=== PATIENT | male | born 1950 | race Caucasian/White ===

== ENCOUNTER 2017-12-13 13:03 | Emergency (ER) | payer BC ==
--- NOTE | 2017-12-13 13:40 | EDM.PDOC ---
ED HPI GENERAL MEDICAL PROBLEM - General Chief Complaint: Lower Extremity Injury/Pain Stated Complaint: LT KNEE PAIN Time Seen by Provider: 12/13/17 13:25 Source of Information: Reports: Patient, Family History Limitations: Reports: No Limitations - History of Present Illness INITIAL COMMENTS - FREE TEXT/NARRATIVE: c/o R knee pain h/o DJD L knee, [id number], had TKR 2015, still had pain, had revision at [facility] by Dr Monroe ("cleaned out," spacer placed) pt going to rehab, taking Percocet 7.5 w tab q4h regularly cannot more than 4.5h without pain can walk 50 yards, walks in house, had had inc'd pain at times, today had pain and went to PT and had ice put on it, did not due exercises, still had pain and decided to come to ED, pt worried re a blood clot here with his has been doing stretching at home f/u with surgeon in 1w, has seen PCP Dr Vides in f/u sees Manish from PT denies CV hx altho pointed out he had afib once, had converted to SR as they were wheeling him to the EPS lab 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: Reports: Other Medication(s) L knee Pain Score (Numeric/FACES): 4 - Related Data Allergies Allergy/AdvReac Type Severity Reaction Status Date / Time Sulfa (Sulfonamide Allergy Hives Verified 12/13/17 13:13 Antibiotics) Home Meds: Home Meds Aspirin [Halfprin] 81 mg PO DAILY 12/10/15 [History] Potassium Chloride 20 meq PO DAILY 12/10/15 [History] amLODIPine Besylate/Benazepril [Lotrel 10-40 MG] 1 tab PO DAILY 12/10/15 [ History] Hydrocodone/Acetaminophen [Hydrocodon-Acetaminoph 7.5-325] 2 tab Q4H PRN [History] Minocycline HCl 100 mg PO BID 12/13/17 [History] oxyCODONE HCl/Acetaminophen [Percocet 7.5-325 mg Tablet] 1 each PO Q4H PRN #12 tablet 12/13/17 [Rx] Past Medical History HEENT History: Reports: Impaired Vision Cardiovascular History: Reports: Hypertension Respiratory History: Reports: Asthma Other Respiratory History: STATES ASTHMA A CHILD Gastrointestinal History: Reports: Colon Polyp, Irritable Bowel Syndrome Genitourinary History: Reports: None Musculoskeletal History: Reports: Arthritis, Osteoarthritis Neurological History: Reports: None Psychiatric History: Reports: None Endocrine/Metabolic History: Reports: None Hematologic History: Reports: None Immunologic History: Reports: None Oncologic (Cancer) History: Reports: None Dermatologic History: Reports: Other (See Below) Other Dermatologic History: TREATED FOR PERIODIC RASH BY STAFF DEVELOPMENT EDUCATOR YEARS AGO. STATES RASH ON GROIN ET ON UNDER ARMS. CANNOT REMEMBER MED USED FOR THIS. - Infectious Disease History Infectious Disease History: Reports: Chicken Pox, Measles - Past Surgical History Head Surgeries/Procedures: Reports: None Musculoskeletal Surgical History: Reports: Arthroscopic Knee, Knee Replacement Social & Family History - Tobacco Use Smoking Status *Q: Former Smoker Years of Tobacco use: 2 Review of Systems - Review of Systems Review Of Systems: See Below Constitutional: Reports: No Symptoms Eyes: Reports: No Symptoms Ears: Reports: No Symptoms Nose: Reports: No Symptoms Mouth/Throat: Reports: No Symptoms Respiratory: Reports: No Symptoms Cardiovascular: Reports: No Symptoms GI/Abdominal: Reports: No Symptoms Genitourinary: Reports: No Symptoms Musculoskeletal: Reports: Other (knee pain, chronic swelling, pain is anterior and posterior) Skin: Reports: No Symptoms Neurological: Reports: No Symptoms Psychiatric: Reports: No Symptoms ED EXAM, GENERAL - Physical Exam Exam: See Below Exam Limited By: No Limitations General Appearance: Alert, WD/WN, No Apparent Distress Respiratory/Chest: No Respiratory Distress Extremities: Other (L knee with healing midline scar without d/c, slight red and warm c/w swelling and healing, no clinical evidence of cellulitis, moderate swelling of prepatellar bursa b/l, possible intrarticular effusion altho difficult to tell if patella is ballottable, no localized PT, no localized bony tenderness) Psychiatric: Normal Affect, Normal Mood Skin Exam: Warm, Dry, Intact, Normal Color, No Rash Lymphatic: No Adenopathy Course - Vital Signs Last Recorded V/S: Last Vital Signs Temp 36.6 C 12/13/17 13:03 Pulse 77 12/13/17 15:42 Resp 18 12/13/17 15:42 BP 129/75 12/13/17 15:42 Pulse Ox 100 12/13/17 15:42 - Orders/Labs/Meds Orders: Active Orders 24 hr Category Date Time Status Knee 3V Lt [CR] Stat Exams 12/13/17 13:42 Taken VL Duplex Lwr Ext Veins Ltd Lt [US] Stat Exams 12/13/17 13:42 Taken Labs: Laboratory Tests 12/13/17 12/13/17 12/13/17 Range/Units 13:53 13:53 13:53 WBC 6.7 (4.5-12.0) X10-3/uL RBC 3.24 L (4.30-5.75) x10(6)uL Hgb 11.0 L (11.5-15.5) g/dL Hct 32.9 (30.0-51.3) % MCV 101.2 H (80-96) fL MCH 34.0 H (27.7-33.6) pg MCHC 33.6 (32.2-35.4) g/dL RDW 12.9 (11.5-15.5) % Plt Count 264 (125-369) X10(3)uL MPV 7.7 (7.4-10.4) fL Neut % (Auto) 79.4 (46-82) % Lymph % (Auto) 7.9 L (13-37) % Putnam % (Auto) 11.5 (4-12) % Eos % (Auto) 1 (1.0-5.0) % Baso % (Auto) 1 (0-2) % Neut # (Auto) 5.4 (1.6-8.3) # Lymph # (Auto) 0.5 L (0.6-5.0) # Putnam # (Auto) 0.8 (0.0-1.3) # Eos # (Auto) 0.0 (0.0-0.8) # Baso # (Auto) 0.0 (0.0-0.2) # ESR 45 H (0-15) mm/hr Sodium 137 (135-145) mmol/L Potassium 3.0 L (3.5-5.3) mmol/L Chloride 98 L (100-110) mmol/L Carbon Dioxide 30 (21-32) mmol/L BUN 6 L (7-18) mg/dL Creatinine 0.6 L (0.70-1.30) mg/dL Est Cr Clr Drug Dosing 110.76 mL/min Estimated GFR (MDRD) > 60 (>60) BUN/Creatinine Ratio 10.0 (9-20) Glucose 140 H (80-116) mg/dL Calcium 8.5 L (8.6-10.2) mg/dL Total Bilirubin 0.9 (0.1-1.3) mg/dL AST 44 H (5-25) IU/L ALT 13 (12-36) U/L Alkaline Phosphatase 92 (56-112) IU/L C-Reactive Protein 1.7 H (0.5-0.9) mg/dL Total Protein 6.2 (6.0-8.0) g/dL Albumin 2.8 L (3.2-4.6) g/dL Globulin 3.4 g/dL Albumin/Globulin Ratio 0.8 Meds: Medications Discontinued Medications Generic Name Dose Route Start Last Admin Trade Name Freq PRN Reason Stop Dose Admin Ketorolac Tromethamine 60 mg 12/13/17 13:40 12/13/17 13:55 Toradol IM 12/13/17 13:41 60 mg ONETIME ONE Administration - Re-Assessments/Exams Free Text/Narrative Re-Assessment/Exam: 12/13/17 15:48 mild inc'd CRP and ESR c/w postop, XR with inc'd joint space c/w spacer, no evidence loosening, WBC neg K 3.0, had been on HCTZ until recently, still on KCl 20 meq daily, will increase for now next PT in 4d, d/w Manish at PT prepatellar bursa c/w overuse Departure - Departure Time of Disposition: 15:50 Disposition: Home, Self-Care 01 Condition: Good Clinical Impression: Prepatellar bursitis of left knee - Discharge Information Prescriptions: oxyCODONE HCl/Acetaminophen [Percocet 7.5-325 mg Tablet] 1 each PO Q4H PRN #12 tablet PRN Reason: Pain Instructions: Prepatellar Bursitis Referrals: Manuel Meza MD [Primary Care Provider] - Forms: ED Department Discharge Additional Instructions: For pain and inflammation and swelling, take ibuprofen 200 mg 3 tabs 4 times a day for 1 week. For pain, may substitute one tab of oxycodone with acetaminophen 7.5/325 mg for one (or two) tabs of hydrocodone with acetaminophen 7.5/325 mg. Continue ice 10 minutes every 2 hours as needed. Continue stretching and PT, however decrease duration by 30% in order to allowed inflamed tissues the opportunity to heal. See Dr Vides or Dr Clarke in 4-5 days. Increase potassium 20 meq 2 tabs daily for 1 week, then discuss the ongoing dose with Dr Vides. Call your Physician or Return to Emergency Department if: * Your condition worsens in any way. * You develop fever greater than 100.4. * You have vomitting that does not stop with medications. * You have pain that is not controlled with medications. - My Orders Last 24 Hours: My Active Orders 12/13/17 13:42 Knee 3V Lt [CR] Stat VL Duplex Lwr Ext Veins Ltd Lt [US] Stat - Assessment/Plan Last 24 Hours: My Active Orders 12/13/17 13:42 Knee 3V Lt [CR] Stat VL Duplex Lwr Ext Veins Ltd Lt [US] Stat
[2017-12-13] MEDS: Ketorolac 60 MG/2 ML SDV IM ONE (13:55)
[2017-12-13 15:43] VITALS: BP 129/75
--- NOTE | 2017-12-14 09:24 | US ---
INDICATION: Increased pain in left knee, 3 weeks post-op. DUPLEX ULTRASOUND, LEFT LOWER EXTREMITY VEINS: Utilizing 2-D real time, duplex Doppler spectral analysis, and color flow imaging, examination of the left lower extremity veins revealed no evidence of deep venous thrombosis or obstruction. Compression views showed no abnormal lack of compression to suggest thrombosis. No evidence of incompetence of the valves was identified. A mass apparently cranial and anterior to the patella is suggested. No blood flow images were obtained, however, the technologist did not see any color flow on real time imaging. Findings could be on the basis of a hematoma. It measured approximately 34 mm anteroposterior and 103 mm craniocaudad. The possibility that this represents a hematoma is likely. IMPRESSION: 1) Duplex ultrasound, left lower extremity veins, shows no evidence of deep venous thrombosis or incompetence. 2) 10 x 3.4-cm mass density at the anterior left distal thigh. The possibility that this represents a hematoma is likely. MTDD
--- NOTE | 2017-12-14 09:34 | CR ---
INDICATION: Revision total knee arthroplasty, 12/20/2017. Increased pain. LEFT KNEE: Frontal, lateral, and patellar sunrise views of the left knee were obtained 12/13/2017 and compared with 11/22/2017, revealing position and alignment of the TKA to remain unchanged. Resolution of post-surgical changes is for the most part seen. There is increased prominence, however, at the area of the suprapatellar bursa, raising question of a mass in that area, possibly a large knee joint effusion. Deviation of the patella away from the femoral component of the TKA further suggests a significant sized knee joint effusion. Otherwise, no complicating process was suggested. MTDD
== END 2017-12-13 16:00 | disposition home or self-care (01) ==
LOC: FB.ED 13:03
DX: M70.42 Prepatellar bursitis, left knee (principal); I10 Essential (primary) hypertension; J45.909 Unspecified asthma, uncomplicated; Z88.2 Allergy status to sulfonamides; Z79.899 Other long term (current) drug therapy; Z87.891 Personal history of nicotine dependence
CPT/HCPCS: 36415; 73562-LT; 80053; 85025; 85651; 86140; 93971-LT; 96372; 99284; J1885

== ENCOUNTER 2021-05-28 05:13 | Emergency (ER) | payer BC ==
[2021-05-28] MEDS ORDERED: Lidocaine 1% 20 ML MDV INFILT ONE (05:14)
--- NOTE | 2021-05-28 05:22 | EDM.PDOC ---
ED HPI GENERAL MEDICAL PROBLEM - General Stated Complaint: head lac Time Seen by Provider: 05/28/21 05:21 Source of Information: Reports: Patient History Limitations: Reports: No Limitations - History of Present Illness INITIAL COMMENTS - FREE TEXT/NARRATIVE: 70-year-old male who had basal cell carcinoma removed from his left temporal area on a 2020. On 05/19/2021 he had the sutures removed and then 2 days ago he had an opening of the wound and the internal stitches apparently came out. He was seen in the walk-in clinic and they placed Steri-Strips and then at 3 to 4 AM today he was awakened with bleeding from this area. He states that he has placed direct pressure on it somewhat heated to stop and it has continued to bleed all presenting here he denies any pain. He rates his pain as a 0/10. He has had no nausea or vomiting. There has been no weakness or dizziness. There has been no trauma to the area. He presents to the emergency department via private vehicle by himself. There are no other associated signs or symptoms. There are no other modifying factors. Onset: Today (3 to 4 AM today.) Duration: Constant Location: Reports: Head (Left temporal area) Quality: Reports: Other (Not applicable) Context: Reports: Other Associated Symptoms: Reports: No Other Symptoms Treatments KAIAWHINA: Reports: Dressing(s), Home Treatments - Related Data Allergies Allergy/AdvReac Type Severity Reaction Status Date / Time Sulfa (Sulfonamide Allergy Hives Verified 12/13/17 13:13 Antibiotics) Home Meds: Home Meds Aspirin [Halfprin] 81 mg PO DAILY 12/10/15 [History] Potassium Chloride 20 meq PO DAILY 12/10/15 [History] amLODIPine Besylate/Benazepril [Lotrel 10-40 MG] 1 tab PO DAILY 12/10/15 [History] Hydrocodone/Acetaminophen [HYDROcodone-Acetaminophen 7.5-325 MG] 2 tab Q4H PRN 12/13/17 [History] Minocycline HCl 100 mg PO BID 12/13/17 [History] oxyCODONE HCl/Acetaminophen [Percocet 7.5-325 mg Tablet] 1 each PO Q4H PRN #12 tablet 12/13/17 [Rx] Past Medical History HEENT History: Reports: Impaired Vision Cardiovascular History: Reports: Hypertension Respiratory History: Reports: Asthma Other Respiratory History: STATES ASTHMA A CHILD Gastrointestinal History: Reports: Colon Polyp, Irritable Bowel Syndrome Musculoskeletal History: Reports: Arthritis, Osteoarthritis Dermatologic History: Reports: Other (See Below) Other Dermatologic History: TREATED FOR PERIODIC RASH BY 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 STATES RASH ON GROIN ET ON UNDER ARMS. CANNOT REMEMBER MED USED FOR THIS. - Infectious Disease History Infectious Disease History: Reports: Chicken Pox, Measles - Past Surgical History Musculoskeletal Surgical History: Reports: Arthroscopic Knee, Knee Replacement Social & Family History - Tobacco Use Tobacco Use Status *Q: Unknown Ever Used Tobacco (Nonsmoker) - Caffeine Use Caffeine Use: Reports: Coffee - Alcohol Use Alcohol Use History: No ED ROS GENERAL - Review of Systems Review Of Systems: See Below Constitutional: Denies: Fever, Chills HEENT: Denies: Eye Pain, Throat Pain Respiratory: Denies: Shortness of Breath, Cough Cardiovascular: Denies: Chest Pain, Palpitations GI/Abdominal: Denies: Abdominal Pain, Nausea, Vomiting : Denies: Dysuria, Hematuria Musculoskeletal: Denies: Neck Pain, Back Pain Skin: Reports: Wound. Denies: Diaphoresis, Rash Neurological: Denies: Headache Psychiatric: Denies: Anxiety Hematologic/Lymphatic: Denies: Easy Bleeding, Easy Bruising ED EXAM, GENERAL - Physical Exam Exam: See Below Exam Limited By: No Limitations General Appearance: Alert, WD/WN, No Apparent Distress Eye Exam: Bilateral Eye: EOMI, Normal Inspection Ears: Normal External Exam, Hearing Grossly Normal Ear Exam: Bilateral Ear: Auricle Normal Nose: Normal Inspection, Normal Mucosa, No Blood Throat/Mouth: Normal Inspection, Normal Oropharynx, Normal Voice, No Airway Compromise Head: Atraumatic, Other (There is an open wound on his left temporal area with clot in the base and appearance of previous bleeding. There is no erythema.) Neck: Normal Inspection, Supple, Non-Tender, Full Range of Motion Respiratory/Chest: No Respiratory Distress, Lungs Clear, Normal Breath Sounds, No Accessory Muscle Use, Chest Non-Tender Cardiovascular: Normal Peripheral Pulses, Regular Rate, Rhythm, No Murmur Peripheral Pulses: 2+: Radial (L), Radial (R) GI/Abdominal: Normal Bowel Sounds, Soft, Non-Tender Back Exam: Normal Inspection Extremities: Normal Inspection, Normal Range of Motion, Non-Tender, No Pedal Edema, Normal Capillary Refill Neurological: Alert, Oriented, CN II-XII Intact, Normal Cognition, No Motor/Sensory Deficits Psychiatric: Normal Affect Skin Exam: Warm, Dry, Normal Color, No Rash, Wound/Incision (In the left temporal area as mentioned above.) ED GENERAL MEDICAL PROCEDURES - Additional/Other Procedure(s) Other (Free Text) Procedure(s): The patient had bleeding from his previous surgical site for removal of basal cell carcinoma in the left temporal area. There was clot in the base and we were able to clear all of this out and there were a couple bleeding spots that seem to be small bleeders at the edges of the wound. After informed verbal consent was obtained from the patient, I did proceed to use silver nitrate cautery to attempt to get control of this and add further bleeding that was difficult to control with a sore nitrate and I did attempt suturing with some 4-0 Vicryl seemed to be untenable as the wound edges were to Nico part to provide good closure. I had anesthetized the area with 1% lidocaine 3 ml and I had irrigated the area copiously with about 500 mL of normal saline. He tolerated this well and there are no major complications. I did abort this and I again used silver nitrate cautery and was able to get control the bleeding. I have discussed this with the patient. He will have a rather large wound that will need to heal by secondary intention and will need daily wound care. He should follow-up with his surgeon this next week for recheck of the wound. An appropriate supportive dressing with bacitracin was applied by the nursing staff. He should do this 1-2 times daily until this area has healed over are until he has further instructions from his surgeon. Course - Vital Signs Last Recorded V/S: Last Vital Signs Temp 36.9 C 05/28/21 06:06 Pulse 69 05/28/21 06:06 Resp 16 05/28/21 06:06 BP 145/94 H 05/28/21 06:06 Pulse Ox 94 L 05/28/21 06:06 Departure - Departure Time of Disposition: 07:20 Disposition: Home, Self-Care 01 Condition: Good Clinical Impression: Postoperative bleeding from incision - Discharge Information Referrals: Manuel Meza MD [Primary Care Provider] - Forms: ED Department Discharge Additional Instructions: The area of bleeding in the surgical incision was stopped using silver nitrate cautery. This area is now an open wound that will need to heal over time. He should clean the area with mild soap and water and apply bacitracin and a Band- Aid to the area 1-2 times daily until it closes over. If you have any further bleeding, you should apply steady direct pressure over the wound for 15-30 minutes this should control the bleeding. You will need to follow-up with the ENT doctor check this coming week. This is a wound that he not close completely on its own and it may need further surgery to get the wound to close together. Back to the emergency department for redness, increased swelling or other signs of infection or uncontrolled bleeding. Sepsis Event Note (ED) - Focused Exam Vital Signs: Vital Signs Temp Pulse Resp BP Pulse Ox 05/28/21 06:06 36.9 C 69 16 145/94 H 94 L 05/28/21 05:35 36.9 C 79 18 148/98 H 98
[2021-05-28 06:08] VITALS: BP 145/94; PULSE 69
[2021-05-28] MEDS ORDERED: Bacitracin Oint 1 GM U/D Packet TOP ONE (06:15)
== END 2021-05-28 07:30 | disposition home or self-care (01) ==
LOC: FB.ED 05:13
DX: L76.22 Postprocedural hemorrhage of skin and subcutaneous tissue following other procedure (principal); S01.80XA Unspecified open wound of other part of head, initial encounter; I10 Essential (primary) hypertension; Z88.2 Allergy status to sulfonamides; Z79.82 Long term (current) use of aspirin; Z85.841 Personal history of malignant neoplasm of brain; X58.XXXA Exposure to other specified factors, initial encounter
CPT/HCPCS: 12001; 99283-25